=== PATIENT | female | born 1985 | race Caucasian/White ===

== ENCOUNTER 2019-07-26 12:56 | Outpatient (CLI) | payer OTHER ==
--- NOTE | 2019-08-09 14:52 | CONSULTATION REPORT ---
DATE OF VISIT: 07/26/2019 CHIEF COMPLAINT: Low back pain with right lower extremity pain. HISTORY OF PRESENT ILLNESS: Valencia is a 33-year-old female patient here for initial evaluation for her low back pain and right lower extremity pain. She did consult with Dr. Hernesto Calderón on 05/20/2019 regarding her pain symptoms. He has referred the patient for conservative care to include an epidural steroid injection. The patient states that she has had low back pain for approximately 15 years that has been progressive in nature. Three years ago, she had an LFD with Dr. Calderón for left radicular symptoms for which she has done well. She now is experiencing right lower extremity symptoms over the last year that, again, has been progressive in nature. She tells me that her low back pain is constant, aching and sharp. She has radiation posteriorly down her right leg to her toes. She has numbness and tingling in the right foot. She denies lower extremity weakness, urinary incontinence, bowel incontinence, or saddle anesthesias. She reports that 50% of her pain is located to the axial low back and 50% is radicular with 100% of the radicular symptoms in her right lower extremity. Her pain is worse with walking or sitting too long. It is improved with lying down. The patient has not participated in any physical therapy or a home exercise program, nor has she had any recent chiropractic treatment. She did have imaging completed at our [facility] to include x-rays of her AP pelvis and lumbar spine, as well as an MRI ordered of her lumbar spine without contrast, and those were reviewed today. The patient has been taking naproxen, tramadol and Flexeril with improvement in her pain symptoms. PAST MEDICAL HISTORY: Low back pain, knee pain, anxiety and depression, neck pain, cervicogenic headaches, fatty liver disease, major depressive disorder, recurrent, moderate migraine headaches, nonfunctioning gallbladder, obesity, right lumbar radiculitis, thoracic spine pain. PAST SURGICAL HISTORY: Tonsillectomy and adenoidectomy, on 05/17/2012, lap abel 12/02/2012, hysterectomy 04/24/2016, gastric sleeve 10/24/2016, and an LFD by Dr. Hernesto Calderón approximately three years ago. ALLERGIES: No known drug allergies and no known allergies. MEDICATIONS: Current medications include trazodone 100 mg q.h.s., Topamax 50 mg two tabs p.o. b.i.d., Linzess 290 mcg one cap p.o. daily, duloxetine 60 mg one cap p.o. b.i.d., diclofenac sodium 75 mg one tab p.o. b.i.d., Buspar 10 mg two tabs p.o. b.i.d., a vitamin one tab p.o. q.day. SOCIAL HISTORY: ETOH denies. Recreational drug use denies. Tobacco use denies. FAMILY HISTORY: Mother with arthritis, chronic migraines, pulmonary fibrosis and rheumatoid arthritis. Father with diabetes type 1 and fibromyalgia. REVIEW OF SYSTEMS: A complete 14-point review of systems was performed and positive for back pain with right lower extremity pain, joint stiffness and joint pain, headaches. OBJECTIVE: General: This is an obese female patient presenting in [facility]. Vital Signs: The patient is 5 4 tall and weighs 205 pounds. Pulse is 62, respiratory rate 14, blood pressure 117/67 with an Sa02 of 100% on room air. She is rating her pain an 8/10 today. Psych: She is alert and oriented x 3. She is calm, pleasant and cooperative. HEENT: Normocephalic and atraumatic. Sclera is clear. Pupils are equal and round without miosis. Trachea is midline. There is no lymphadenopathy or thyromegaly on palpation. Cardiovascular: Normal S1, S2. Regular rate and rhythm. No murmurs, gallops or rubs. GI: Abdomen is soft, round, nondistended and nontender. Bowel sounds are present in all four quadrants. Musculoskeletal: Lumbar range of motion is limited approximately 30%. The patient is tender to palpation over the L3-4 level; however, greater over the L4-5 and L5-S1 levels. She also has lumbar paraspinal tenderness to palpation. Bilateral lower extremity strength is equal and strong, all areas graded 5/5. Seated straight leg raise is negative. Bilateral Kemps is positive for low axial back pain only. Patellar deep tendon reflexes are 2+ bilaterally. Neurologic: Cranial nerves II-XII are grossly intact. Sensation is intact bilateral lower extremities. The patient walks with a slightly antalgic gait. IMAGING REVIEW: The patient did have an x-ray, AP pelvis, performed on 05/20/2019 at [facility]. Impression is mild pelvic tilt with the right iliac crest being 10 mm lower than the left. Next, she had a lumbar spine series to include flexion and extension, performed on 05/20/2019 at [facility]. It reveals mild degenerative disc narrowing at L3-4, and moderate degenerative disc narrowing at L4-5 and L5-S1. Next, she had an MRI of her lumbar spine without contrast, performed on 03/30/2019 at [facility]. At L1-2, there is no significant spinal canal stenosis or neural foraminal narrowing. At L2-3, there is mild facet arthrosis. There is mild bilateral neural foraminal narrowing. At L3-4, there is a diffuse disc bulge with a right paracentral disc protrusion. There is no significant spinal canal narrowing. There is [id number] left and moderate right neural foraminal narrowing. At L4-5, there is a right paracentral disc extrusion with mild inferior migration. There is mild spinal canal narrowing. There is mild right and moderate left neural foraminal narrowing. At L5-S1, there is severe facet arthrosis. There is mild left with [id number] right neural foraminal narrowing. Dr. Wang interpretation after reviewing the imaging is that the patient has a herniated nucleus pulposus on the right side at L4-5 which is causing mainly compression of the transiting nerve root. ASSESSMENT: 1. Chronic low back pain. 2. Lumbar degenerative disc disease. 3. Lumbar radiculopathy. 4. Lumbar facet arthrosis. 5. Right-sided herniated nucleus pulposus at L4-5 with radiculopathy and axial back pain. PLAN: We will go ahead and plan an LESI at the L4-5 level as previously ordered by Dr. Calderón. We will follow up with the patient two weeks afterwards to determine the efficacy of the first injection. This can be done by phone as she lives approximately [place] away. Vicky Dorman NP Nurse Practitioner [facility]/lakhwinder Job #[id number] cc: Vitor Smith THE REHABILITATION INSTITUTERachel
== END 2019-07-26 13:56 ==
LOC: OUT 12:56
PROVIDERS: ATTEND Nurse Practitioner Adult Health
DX: M51.16 Intervertebral disc disorders with radiculopathy, lumbar region (principal); M46.96 Unspecified inflammatory spondylopathy, lumbar region
CPT/HCPCS: 99203